=== PATIENT | male | born 1995 | race Hispanic/Latino ===

== ENCOUNTER 2021-05-20 05:49 | Emergency (ER) | payer OTHER ==
[~2021-05-20] VITALS: Ht 167.6 cm; Wt 82.6 kg
[2021-05-20 06:05] VITALS: BP 120/53
[2021-05-20] MEDS ORDERED: CORTSOL AS (07:05)
== END 2021-05-20 07:23 | disposition home or self-care (01) ==
LOC: EDH 07:02
DX: T16.2XXA Foreign body in left ear, initial encounter (principal); X58.XXXA Exposure to other specified factors, initial encounter; Y93.89 Activity, other specified; Y92.89 Other specified places as the place of occurrence of the external cause; Y99.8 Other external cause status
CPT/HCPCS: 69200